=== PATIENT | female | born 1995 | race Caucasian/White ===

== ENCOUNTER → 2017-08-14 15:40 | Observation (INO) ==
--- NOTE | 2017-08-14 14:48 | OB/GYN History & Physical ---
Date of Encounter: 08/14/17 Time of Encounter: 14:25 Assessment and Plan (1) 33 weeks gestation of Current visit: Yes Status: Acute admitted for labor observation (2) Vaginal bleeding during , antepartum Current visit: Yes Status: Acute - Obtain PN records from [facility] in [place], [place]. - Vaginal Speculum exam. - UA. - UDS. - NPO History of Present Illness Chief complaint: Vaginal bleeding HPI: Ms. Ferrara is a 21 year old female at 33 5/7 weeks gestation (CATIE 09/27/17 ) with a PMH of placenta previa that presents for vaginal bleeding. Patient says that she had intercourse last night and noticed some blood spotting in her underwear. She says that this morning while in the bathroom, she noticed alot of blood in the toilet. She denies recent trauma. Patient says that she was diagnosed with placenta previa at 15 weeks and says it resolved after a few weeks. She says that she currently has throbbing uterine pain that is a 5/10 and intermittent. She admits to good movement. She denies any vaginal fluid leakage. She denies any regular contractions. She does admit to FONTANEZ for the past 3 weeks, but none right now. They last about an hour. She denies any vision changes. She denies any chest pain, fever, chills, nausea, vomiting, dysuria, or diarrhea. She has her care done at [facility] in [place] where she sees ice skating coach Flor Stoddard and Dr. Ha. Past Med Surg Social Fam HX - Past Medical History Medical history: no medical history Psychiatric history: anxiety, depression - Social History Smoking Status: Current every day smoker Smokeless Tobacco Status: No Alcohol use: none Drug use: none Obstetrical History - Pregnancies : 2 Para: 1 Term: 1 : 0 Ab's: 0 Livin Medications and Allergies Vitamins 1 tab PO DAILY 08/14/17 [History] 3 Allergy/AdvReac Type Severity Reaction Status Date / Time Amoxicillin Allergy Hives Verified 09/05/16 22:53 Exam - Vital Signs Vital signs: BP: 134/77 HR: 116 FHR: 143 Lehr: 10 - Constitutional Constitutional: well developed, well nourished, no acute distress, average body habitus - Lungs Respiratory exam: CTAB - Cardiovascular Cardiovascular exam: +S1, +S2, tachycardia (Borderline tachycardia) - Abdomen Abdomen: Present: bowel sounds normal, gravid, non tender - Extremities Extremities exam: full ROM, normal capillary refill, normal inspection, radial pulses palpable and symmetrical Deep Tendon Reflex Grade: 2+ Normal - Cervix Dilation: 0 (closed) - Comments Comments: Vaginal exam: No active bleeding. Minor brown-tinged blood found in vaginal vault. SVE: Closed/60/-3 Results All other labs normal. - VTE Reasons for not Prescribing Prophylaxis: Treatment not Indicated - Low risk for VTE - Attending Attestation I examined this patient and my medical decision-making was reviewed with the Resident Physician. I agree with the documented findings, disposition and treatment plan as described except to the extent set forth below. FAB Pena
[2017-08-14 14:50] LABS: Amphetamine Screen,Urine Negative ng/mL (Cutoff=1000); Barbiturate Screen,Urine Negative ng/mL (Cutoff=200); Benzodiazepines Screen,Urine Negative ng/mL (Cutoff=200); Cannabinoid Screen,Urine Positive ng/mL (Cutoff = 50); Cocaine Screen,Urine Negative ng/mL (Cutoff= 300); Opiate Screen,Urine Negative ng/mL (Cutoff=300); Phencyclidine Screen,Urine Negative ng/mL (Cutoff=25)
[2017-08-14 15:07] LABS: Bilirubin,Urine Negative (Negative); Blood,Urine Trace (Negative); Clarity,Urine Cloudy (Clear); Color,Urine Yellow (Yellow); Glucose,Urine (UA) Normal (Normal); Ketones,Urine Negative (Negative); Leukocyte Esterase,Urine Negative (Negative); Nitrite,Urine Negative (Negative); Protein,Urine Negative (Neg-Trace); Specific Gravity,Urine 1.018 (1.010-1.025); Urobilinogen,Urine Normal (Normal)
[2017-08-14 15:14] LABS: Bacteria,Urine None Seen per hpf (None-Few); Hyaline Casts,Urine None Seen per lpf (None-Few); RBC,Urine 0-3 per hpf (0-3); Squamous Epithelial Cell,Urine Many per lpf (None-Few); WBC,Urine 0-3 per hpf (0-3)
[2017-08-14 15:33] LABS: Amorphous Sediment,Urine Few (Few)
--- NOTE | 2017-08-14 15:42 | Discharge Summary ---
Date of Encounter: 08/14/17 Time of Encounter: 15:40 - Discharge Diagnosis (1) 33 weeks gestation of Priority: Primary Status: Acute Comments: monitoring reassuring. SVE closed (2) Vaginal bleeding during , antepartum Priority: Secondary Status: Acute Comments: SSE reveals small amount of pink/brown discharge Patient instructed to call her physician for follow up appointment - Discharge Medications Home Medications: Vitamins 1 tab PO DAILY 08/14/17 [History] Allergies/Adverse Reactions: 3 Allergy/AdvReac Type Severity Reaction Status Date / Time Amoxicillin Allergy Hives Verified 09/05/16 22:53 Data Procedures and tests throughout hospitalization: Laboratory Tests 08/14/17 08/14/17 14:20 14:20 Urine Color Yellow Urine Clarity Cloudy A Urine pH 7.0 Ur Specific Clarita 1.018 Urine Protein Negative Urine Glucose (UA) Normal Urine Ketones Negative Urine Blood Trace H Urine Nitrite Negative Urine Bilirubin Negative Urine Urobilinogen Normal Ur Leukocyte Esterase Negative Urine Microscopic RBC 0-3 Urine Microscopic WBC 0-3 Ur Squamous Epith Cells Many H Amorphous Sediment Few Urine Bacteria None Seen Hyaline Casts None Seen Ur Culture Indicated? NO Urine Opiates Screen Negative Ur Barbiturates Screen Negative Ur Phencyclidine Scrn Negative Ur Amphetamines Screen Negative U Benzodiazepines Scrn Negative Urine Cocaine Screen Negative U Marijuana (THC) Screen Positive H Labs on day of discharge: Labs from last 24 hours 08/14/17 08/14/17 14:20 14:20 Urine Color Yellow Urine Clarity Cloudy A Urine pH 7.0 Ur Specific Clarita 1.018 Urine Protein Negative Urine Glucose (UA) Normal Urine Ketones Negative Urine Blood Trace H Urine Nitrite Negative Urine Bilirubin Negative Urine Urobilinogen Normal Ur Leukocyte Esterase Negative Urine Microscopic RBC 0-3 Urine Microscopic WBC 0-3 Ur Squamous Epith Cells Many H Amorphous Sediment Few Urine Bacteria None Seen Hyaline Casts None Seen Ur Culture Indicated? NO Urine Opiates Screen Negative Ur Barbiturates Screen Negative Ur Phencyclidine Scrn Negative Ur Amphetamines Screen Negative U Benzodiazepines Scrn Negative Urine Cocaine Screen Negative U Marijuana (THC) Screen Positive H Date of admission: 08/14/17 13:48 Primary care physician: PCP NONE Discharging clinician: Adriane Gomez Anticipated date of discharge: 08/14/17 - Patient Status Disposition: Home, Self-Care Condition: Good Functional capacity at discharge: independent ambulation - Discharge Instructions Follow Up With: NONE,PCP [Primary Care Provider] - Additional Instructions: LABOR AND DELIVERY DISCHARGE INSTRUCTIONS Signs and Symptoms to be Reported to your Doctor Immediately: * Sudden gush, continuous or intermittent lead of fluid from vagina (note the time of gush and color of fluid) * Onset of bright red vaginal bleeding with or without pain (if you had a vaginal exam during this visit you may notice some dark red spotting. This is normal.) * Lower abdominal cramping or backache that is premenstrual-like feeling. * More than 6 contractions in one hour. * Burning during urination, having to urinate more frequently or pain in your mid-back. * A change in the baby's activity. This could be an increase or decrease in activity. * Severe headache which does not go away with tylenol. * Sudden swelling in the face, hands, arms and/or legs. * Upper abdominal pain - sometimes associated with heartburn or nausea and is not relieved by Maalox, Mylanta or Tums. * Dizziness or blurred vision or visual disturbances (seeing stars/lights). * Kick Counts One hour after a meal, lay down on one side in a quiet place. Count the number of leroy the baby moves during an hour. If less than 6 movements, notify your physician. Diet: *Force fluids - 8-10 tall glasses of fluid per day. May include popsicles and jello. *Limit caffeine - this includes chocolate, coffee, tea, any soft drink containing such as all gabriel, Jose A Yellow and Mountain Dew - Diet and Activity Activity: resume usual activities as tolerated Diet: regular diet Hospital Course LEGAL INVESTIGATOR Time Attestation: Total time spent providing and/or coordinating discharge services: Time Spent: Less than 30 minutes Exam - Constitutional General appearance IM: A&O X 3, pleasant, no acute distress - Respiratory Respiratory exam: Present: CTAB - Cardiovascular Cardiovascular exam IM: Present: RRR, +S1, +S2 - GI/Abdominal GI/Abdominal exam IM: normal bowel sounds, soft - Rectal Rectal exam: deferred - Extremities Exam Extremities exam IM: Present: full ROM, normal capillary refill, normal inspection, warm - Neurological Exam Neurological exam: alert, oriented X3, reflexes normal - Other Additional findings: FHR 140 bpm, moderate variability, 0 accels, occasional variable deceleration. - VTE Reasons for not Prescribing Prophylaxis: Treatment not Indicated - Low risk for VTE
== END | disposition home or self-care (01) ==
LOC: 1NENULAB
PROVIDERS: ADMIT Obstetrics & Gynecology; ATTEND Obstetrics & Gynecology